=== PATIENT | male | born 1980 | race African-American/Black ===

== ENCOUNTER 2018-04-29 14:09 | Emergency (ER) | payer BC, MEDICAID ==
[~2018-04-29] VITALS: Ht 177.8 cm; Wt 77.1 kg
[2018-04-29 16:04] VITALS: BP 158/77
[2018-04-29] MEDS ORDERED: KETOROLAC TROMETH 60MG/2ML VIAL IM ONE (16:30)
== END 2018-04-29 17:00 | disposition home or self-care (01) ==
LOC: ER 14:12
DX: G43.909 Migraine, unspecified, not intractable, without status migrainosus (principal)
CPT/HCPCS: J1885

== ENCOUNTER 2018-06-10 19:03 | Emergency (ER) | payer BC, MEDICAID ==
[~2018-06-10] VITALS: Ht 175.3 cm; Wt 77.1 kg
[2018-06-10] MEDS ORDERED: LORazepam 2MG/ML-1ML VIAL ONE (20:35)
[2018-06-10] MEDS ORDERED: HALOPERIDOL LACTATE 5 MG/ML INJ VIAL ONE (20:35)
[2018-06-10] MEDS ORDERED: LORazepam 2MG/ML-1ML VIAL IM ONE (20:45)
[2018-06-10] MEDS ORDERED: HALOPERIDOL LACTATE 5 MG/ML INJ VIAL IM ONE ×2 (20:45→21:00)
[2018-06-10] MEDS ORDERED: diphenhdrAMINE HCL 50 MG/1 ML VL IM ONE (21:00)
[2018-06-10 22:21] LABS: Basophils # (auto) 0.1 uL; Basophils % (auto) 0.5 % (0.0-2.0); Eosinophils # (auto) 0 uL; Eosinophils % (auto) 0.1 % (0.0-7.0); Hematocrit 44.2 % (41.0-53.0); Hemoglobin 14.8 g/dL (13.5-17.5); Lymphocytes # (auto) 1.8 uL; Lymphocytes % (auto) 12.1 % (10.0-50.0); Mean Corpuscular Hemoglobin 30.5 pg (28.0-32.0); Mean Corpuscular Hgb Conc. 33.4 g/dL (32.0-36.0); Mean Corpuscular Volume 91.2 fL (80.0-100.0); Monocytes # (auto) 1.3 uL; Monocytes % (auto) 8.4 % (0.0-12.0); Neutrophils # (auto) 11.9 uL; Neutrophils % (auto) 78.9 % (37.0-80.0); Platelet Count (auto) 254 10^3/uL (140-450); Red Blood Cells 4.85 10^6/uL (4.5-5.90); Red Cell Distribution Width 13.1 % (11.8-14.3)
[2018-06-10 22:35] LABS: Alanine Aminotransferase 45 U/L (16-61); Albumin 3.9 g/dL (3.4-5.0); Anion Gap 10 (5-15); Aspartate Aminotransferase 45 U/L (15-37); Blood Alcohol < 3.0 mg/dL (0-5); Blood Urea Nitrogen 24 mg/dL (7-18); Calcium 8.6 mg/dL (8.5-10.1); Carbon Dioxide 25 mmol/L (21-32); Chloride 106 mmol/L (98-107); GFR African American 67 mL/min; GFR Non-African American 55 mL/min; Glucose 98 mg/dL (74-106); Potassium 3.2 mmol/L (3.5-5.1); Sodium 141 mmol/L (136-145)
[2018-06-10 22:37] LABS: Alkaline Phosphatase 99 U/L (45-117); Bilirubin, Total 1.3 mg/dL (0.2-1.0); Total Protein 7.8 g/dL (6.4-8.2)
[2018-06-11] MEDS ORDERED: cefTRIAXone 1GM/50ML D5W 50 ML IV ONE (08:00)
[2018-06-11] MEDS ORDERED: CLINDAMYCIN 600MG IV 50 ML IV ONE (08:00)
[2018-06-11] MEDS ORDERED: TETANUS-DIPTH-ACEL PERTUSSIS 0.5ML SYRG IM ONE (09:00)
[2018-06-11] MEDS ORDERED: LIDOCAINE 1%HCL (LOCAL ANESTH) 10 ML MDV ONE (10:54)
[2018-06-11] MEDS ORDERED: BACITRACIN TOP OINT 1 UD PKG TOP ONE (12:15)
[2018-06-11] MEDS ORDERED: BACITRACIN INJ 50000 UNIT VIAL TOP ONE (12:15)
[2018-06-11 12:18] LABS: Urine WBC None Seen /hpf (0 - 3)
[2018-06-11 12:31] LABS: Urine Bacteria FEW /hpf (None Seen); Urine Blood Negative /uL (Negative); Urine Mucus FEW (None Seen); Urine Specific Gravity 1.028 (1.001-1.035)
[2018-06-11 12:55] LABS: Alcohol, Urine < 3.0 mg/dL (0-5); Amphetamine Screen, Urine POSITIVE (NEGATIVE); Barbiturate Scree,Urine NEGATIVE (NEGATIVE); Benzodiazephine Screen, Urine NEGATIVE (NEGATIVE); Cannabinoid Screen, Urine NEGATIVE (NEGATIVE); Cocaine Screen, Urine NEGATIVE (NEGATIVE); Opiate Scree,Urine NEGATIVE (NEGATIVE); Phencyclidine Screen, Urine NEGATIVE (NEGATIVE)
[2018-06-11 13:01] VITALS: BP 124/75
== END 2018-06-11 14:46 | disposition home or self-care (01) ==
LOC: EDUNIT# 19:03 → ER 19:07
DX: S51.812A Laceration without foreign body of left forearm, initial encounter (principal); S61.411A Laceration without foreign body of right hand, initial encounter; S51.811A Laceration without foreign body of right forearm, initial encounter; R41.82 Altered mental status, unspecified; G93.41 Metabolic encephalopathy; D72.829 Elevated white blood cell count, unspecified; E87.6 Hypokalemia; N28.9 Disorder of kidney and ureter, unspecified; X58.XXXA Exposure to other specified factors, initial encounter; Y93.89 Activity, other specified; Y99.8 Other external cause status; Y92.89 Other specified places as the place of occurrence of the external cause
CPT/HCPCS: 12005; 36415; 70450; 73070; 73090; 73130; 73200; 73560; 80053; 80307; 80320; 81001; 85025; 90471; 90715; 93005; 96365; 96366; 96368; 96372; 99285; J0696; J1630; J2001; J2060; J3490; J7040